=== PATIENT | male | born 1950 | race Caucasian/White ===

== ENCOUNTER 2017-03-25 10:31 | Emergency (ER) | payer SELFPAY ==
[~2017-03-25] VITALS: Ht 162.6 cm; Wt 66.8 kg
[2017-03-25 12:14] LABS: BASOPHILS % (AUTO) 0.5 % (0.0-2.0); EOSINOPHILS % (AUTO) 2.8 % (1.0-6.0); HEMATOCRIT 44.9 % (41-53); HEMOGLOBIN 15.4 g/dL (13.5-17.5); LYMPHOCYTES # (AUTO) 2.2 K/uL (1.0-4.8); LYMPHOCYTES % (AUTO) 33.4 % (22.0-44.0); MEAN CORPUSCULAR HEMOGLOBIN 30.8 pg (26.0-34.0); MEAN CORPUSCULAR HGB CONC 34.2 G/dL (31.0-37.0); MEAN CORPUSCULAR VOLUME 90 fL (80-100); MONOCYTES # (AUTO) 0.6 K/uL (0.1-1.0); MONOCYTES % (AUTO) 9.7 % (2.0-9.0); NEUTROPHILS # (AUTO) 3.5 K/uL (1.8-7.7); NEUTROPHILS % (AUTO) 53.6 % (40.0-70.0); PLATELET COUNT (AUTO) 174 K/uL (150-450); RED BLOOD CELL COUNT(AUTO) 4.99 MIL/uL (4.50-5.90); RED CELL DISTRIBUTION WIDTH 13.2 % (11.5-14.5); WHITE BLOOD COUNT (AUTO) 6.6 K/uL (4.5-11.0)
[2017-03-25 12:24] LABS: ANION GAP 9 mmol/L (8-16); CARBON DIOXIDE 27 mmol/L (22-29); CHLORIDE 103 mmol/L (98-107); CREATININE 1.29 mg/dL (0.60-1.30); POTASSIUM 4.5 mmol/L (3.5-5.1); SODIUM SERUM 139 mmol/L (136-145); UREA NITROGEN, BLOOD 17 mg/dL (7-18)
[2017-03-25 12:25] LABS: CALCIUM, TOTAL 8.8 mg/dL (8.8-10.5); GLOMERULAR FILTR. RATE CALC 56 mL/min (>60)
[2017-03-25 12:26] LABS: APPEARANCE,URINE CLEAR (CLEAR); GLUCOSE, URINE (UA) NEGATIVE (NEGATIVE); KETONES,URINE NEGATIVE (NEGATIVE); LEUKOCYTE ESTERASE ,URINE NEGATIVE (NEGATIVE); OCCULT BLOOD,URINE NEGATIVE (NEGATIVE); PROTEIN,URINE NEGATIVE (NEGATIVE)
[2017-03-25 12:27] LABS: ADD UA MICROSCOPIC NO
[2017-03-25] MEDS ORDERED: MECLIZINE HCL 25 MG TABLET PO ONE (12:30)
[2017-03-25] MEDS ORDERED: SODIUM CHLORIDE 0.9% 1,000 ML IV ONE (12:30)
[2017-03-25 12:35] LABS: ALANINE AMINOTRANSFERASE 22 U/L (12-78); ALBUMIN 3.5 g/dL (3.4-5.0); ASPARTATE AMINOTRANSFERASE 15 U/L (15-37); BILIRUBIN,TOTAL 0.4 mg/dL (0.1-1.0); CREATINE KINASE, TOTAL 62 U/L (39-308); TOTAL PROTEIN, SERUM 6.9 g/dL (6.4-8.2)
[2017-03-25 12:56] LABS: B-TYPE NATRIURETIC PEPTIDE 6 pg/mL (0-100)
[2017-03-25 15:50] VITALS: BP 147/92
== END 2017-03-25 16:14 | disposition home or self-care (01) ==
LOC: EMS 10:34
DX: R42 Dizziness and giddiness (principal)
CPT/HCPCS: 36415; 70450; 71010; 80053; 80307; 81003; 82550; 83880; 84484; 85025; 96360; 99285; J7030

== ENCOUNTER 2019-08-23 05:45 | Day surgery (SDC) | payer OTHER ==
[~2019-08-23] VITALS: Ht 162.6 cm; Wt 70.9 kg
[~2019-08-23 05:45] MED LIST: MECL-111 PO
[2019-08-23] MEDS ORDERED: ONDANSETRON HCL 4 MG/2 ML VIAL IVP ONE (05:46)
[2019-08-23] MEDS ORDERED: SUCCINYLCHOLINE CHLORIDE 20 MG/ML 10 ML VIAL IVP ONE (05:46)
[2019-08-23] MEDS ORDERED: DEXAMETHASONE SOD PHOS 4 MG/ML VIAL IVP ONE (05:46)
[2019-08-23] MEDS ORDERED: FentaNYL CITRATE-PF 100 MCG/2 ML VIAL IVP ONE (05:46)
[2019-08-23] MEDS ORDERED: PROPOFOL 1% 20 ML VIAL IVP ONE (05:46)
[2019-08-23] MEDS ORDERED: RINGERS SOLUTION,LACTATED 1,000 ML IV ONE ×2 (05:51→06:00)
[2019-08-23] MEDS ORDERED: CeFAZolin 2 GM/DEXTROSE 50 ML IV ONE ×2 (05:52→06:30)
[2019-08-23] MEDS ORDERED: MetroNIDAZOLE 500 MG/NACL 100 ML IV ONE ×2 (06:30→15:00)
[2019-08-23 06:50] LABS: GLUCOMETER DEV NAME(LOC) SDS.; GLUCOSE,POINT OF CARE 113 MG/DL (70-110)
[2019-08-23] MEDS ORDERED: GELATIN SPONGE,ABSORBABLE 100 MM TP ONE (08:29)
[2019-08-23] MEDS ORDERED: BUPIVACAINE HCL/PF 0.5% 30 ML VIAL ONE (08:29)
[2019-08-23] MEDS ORDERED: LIDOCAINE 2%/EPI 1:200,000/PF 20 ML VIAL ONE (08:29)
[2019-08-23] MEDS ORDERED: GELATIN SPONGE,ABSORBABLE 50 MM TP ONE (10:31)
[2019-08-23] MEDS ORDERED: MEPERIDINE-PF 25 MG/ML VIAL IVP PRN (12:30)
[2019-08-23] MEDS ORDERED: HYDROmorphone 2 MG/ML SYRINGE IVP PRN (12:30)
[2019-08-23] MEDS ORDERED: FentaNYL CITRATE-PF 100 MCG/2 ML VIAL IVP PRN (12:30)
[2019-08-23] MEDS ORDERED: ASPI81 PO (13:15)
[2019-08-23] MEDS ORDERED: HYDROCODONE/ACETAMINOPHEN 5-325 MG TABLET PO PRN (16:00)
[2019-08-23] MEDS ORDERED: IBUPROFEN 800 MG TABLET PO PRN (16:00)
[2019-08-23] MEDS ORDERED: ACETAMINOPHEN 500 MG TABLET PO PRN (16:00)
[2019-08-24] MEDS ORDERED: DOCUSATE SODIUM 100 MG CAPSULE PO ONE (09:00)
== END 2019-08-23 17:25 | disposition home or self-care (01) ==
LOC: SURGERY 05:45
PROVIDERS: ATTEND Surgery
DX: K64.8 Other hemorrhoids (principal); Z86.11 Personal history of tuberculosis; Z98.41 Cataract extraction status, right eye; Z98.42 Cataract extraction status, left eye; Z87.891 Personal history of nicotine dependence; Z79.899 Other long term (current) drug therapy
CPT/HCPCS: 46255; 82962; J0330; J0690; J1100; J2405; J2704; J3010; J3490 ×2; J7120